=== PATIENT | male | born 1995 | race African-American/Black ===

== ENCOUNTER 2020-02-22 22:39 | Emergency (ER) | payer SELFPAY ==
[~2020-02-22] VITALS: Ht 172.7 cm; Wt 68.0 kg
[2020-02-22 23:13] LABS: Basophils # (auto) 0.1 10 ^3/uL (0-0.2); Basophils % (auto) 0.9 % (0.0-2.0); Eosinophils # (auto) 0.1 10 ^3/uL (0-0.8); Eosinophils % (auto) 0.9 % (0.0-7.0); Hematocrit 41.7 % (41.0-53.0); Hemoglobin 14.2 g/dL (13.5-17.5); Lymphocytes # (auto) 1.8 10 ^3/uL (0.4-5.4); Mean Corpuscular Hemoglobin 29.7 pg (28.0-32.0); Mean Corpuscular Volume 87.5 fL (80.0-100.0); Monocytes # (auto) 0.4 10 ^3/uL (0-1.3); Monocytes % (auto) 7.1 % (0.0-12.0); Neutrophils # (auto) 3.8 10 ^3/uL (1.6-8.6); Neutrophils % (auto) 62.1 % (37.0-80.0); Nucleated Red Blood Cells % 0.1 %; Platelet Count (auto) 224 10^3/uL (140-450); Red Blood Cells 4.76 10^6/uL (4.5-5.90); Red Cell Distribution Width 13.5 % (11.8-14.3); White Blood Cell 6.1 10^3/uL (4.4-10.8)
[2020-02-22 23:34] LABS: Albumin 3.7 g/dL (3.4-5.0); Calcium 8.9 mg/dL (8.5-10.1)
[2020-02-22 23:36] LABS: BUN/Creatinine Ratio 13.3
[2020-02-22 23:38] LABS: Bilirubin, Total 0.5 mg/dL (0.2-1.0); Total Protein 7.1 g/dL (6.4-8.2)
[2020-02-23 00:56] VITALS: BP 123/64
[2020-02-23 00:56] LABS: Urine Amorphous Crystal FEW /hpf (None Seen); Urine Bacteria FEW /hpf (None Seen); Urine Blood Negative /uL (Negative); Urine Mucus FEW (None Seen); Urine Specific Gravity 1.024 (1.001-1.035); Urine WBC 25 /hpf (0 - 3); Urine WBC Clumps PRESENT /hpf (None Seen)
[2020-02-23 01:15] LABS: Amphetamine Screen, Urine NEGATIVE (NEGATIVE); Barbiturate Scree,Urine NEGATIVE (NEGATIVE); Benzodiazephine Screen, Urine NEGATIVE (NEGATIVE); Cannabinoid Screen, Urine NEGATIVE (NEGATIVE); Cocaine Screen, Urine NEGATIVE (NEGATIVE); Opiate Scree,Urine NEGATIVE (NEGATIVE); Phencyclidine Screen, Urine NEGATIVE (NEGATIVE)
[2020-02-23] MEDS ORDERED: cefTRIAXone W LIDOCAINE 1 GM IM IM ONE (01:15)
[2020-02-23] MEDS: cefTRIAXone SOD 1,000 MG VL ONE ×2 (01:32→01:34)
[2020-02-25 03:11] LABS: RPR Non Reactive (Non Reactive)
== END 2020-02-23 01:08 | disposition home or self-care (01) ==
LOC: ER 22:39 → EDBD 22:39 → ER 02-23 01:08
DX: N39.0 Urinary tract infection, site not specified (principal)
CPT/HCPCS: 36415; 74176; 80053; 80307; 80320; 81001; 82150; 83690; 85025; 86592; 87491; 87591; 96372; 99283; J0696

== ENCOUNTER 2020-02-24 18:13 | Emergency (ER) | payer MEDICAID, OTHER ==
[~2020-02-24] VITALS: Ht 177.8 cm; Wt 74.8 kg
[2020-02-24 19:44] VITALS: BP 146/83
== END 2020-02-24 19:46 | disposition home or self-care (01) ==
LOC: ER 18:13 → EDBD 18:13 → ER 19:46
DX: N39.0 Urinary tract infection, site not specified (principal)